=== PATIENT | female | born 1960 | race Caucasian/White ===

== ENCOUNTER → 2016-05-13 | Outpatient (CLI) | payer BC ==
[~2016-05-13] MED LIST: ASCA500 PO; CALC-478 PO; CHOL100010 PO; COEN75CA PO; LEVO112T4 PO; LORA10CA2 PO; LUTE15CA PO; LYSI500C4 PO; MOME50SP5; [UNRECOGNIZED DRUG - OTHER] PO
[2016-05-13 13:21] LABS: MEAN CELL VOLUME 89.8 fL (80-100); MEAN CORPUSCULAR HEMOGLOBIN 30.3 pg (25-34); MEAN CORPUSCULAR HGB CONC 33.8 g/dl (32-36); MEAN PLATELET VOLUME 10.3 fL (7.4-10.4); PLATELET COUNT 311 K/uL (130-400); RED BLOOD COUNT 4.12 M/uL (4.2-5.4); WHITE BLOOD COUNT 7.78 K/uL (4.8-10.8)
[2016-05-13 13:53] LABS: ALT/SGPT 45 U/L (12-78); BLOOD UREA NITROGEN 16 mg/dl (7-18); BUN/CREATININE RATIO 18.5 (10-20); CARBON DIOXIDE 26 mmol/L (21-32); CHLORIDE 100 mmol/L (98-107); CREATININE 0.84 mg/dl (0.60-1.20); GLUCOSE 81 mg/dl (70-99); POTASSIUM 3.7 mmol/L (3.5-5.1); SODIUM 134 mmol/L (136-145)
[2016-05-13 14:04] LABS: ALB/GLOB RATIO 1.2 (0.9-2); ALKALINE PHOSPHATASE 106 U/L (45-117); AST/SGOT 31 U/L (15-37); PHOSPHORUS 3.4 mg/dl (2.5-4.9)
[2016-05-18 01:33] LABS: ALBUMIN 4.4 G/DL (3.8-4.8); CREATININE UR 20 MG/DL (20-320); GAMMA GLOBULIN 0.9 G/DL (0.8-1.7); IONIZED CALCIUM** TC 19950E 5.01 MG/DL (4.8-5.6); TOTAL PROTEIN 7.1 G/DL (6.2-8.3)
== END | disposition home or self-care (01) ==
LOC: C.LAB1850 12:17
PROVIDERS: ATTEND Internal Medicine Endocrinology, Diabetes & Metabolism
DX: M81.0 Age-related osteoporosis without current pathological fracture (principal); E03.9 Hypothyroidism, unspecified; E06.3 Autoimmune thyroiditis

== ENCOUNTER 2021-01-19 05:08 | Observation (INO) ==
--- NOTE | 2021-01-08 08:41 | PAT Medication Instructions ---
Medication Instructions Date of Service January 08, 2021 Home Medications levothyroxine 100 mcg capsule 100 mcg PO QAM Medical Marijuana 1 dose PO HS PRN calcium carbonate-vitamin D3 600 mg calcium-200 unit capsule (Calcium 600 + D(3)) 1 cap PO BID clonazepam 0.5 mg tablet 0.5 mg PO UD conj estrogen-medroxyprogesterone 0.3 mg-1.5 mg tablet (Prempro) 1 tab PO HS escitalopram oxalate 20 mg tablet 20 mg PO QAM lysine 500 mg tablet 500 mg PO QAM magnesium citrate 100 mg capsule 100 mg PO 3XWK methylphenidate HCl 36 mg tablet,extended release 24 hr 36 mg PO QAM STOP taking 2 weeks before surgery (or as soon as possible if surgery is within 2 weeks) lysine 500 mg tablet 500 mg PO QAM DO NOT take the morning of surgery calcium carbonate-vitamin D3 600 mg calcium-200 unit capsule (Calcium 600 + D(3)) 1 cap PO BID magnesium citrate 100 mg capsule 100 mg PO 3XWK methylphenidate HCl 36 mg tablet,extended release 24 hr 36 mg PO QAM Take morning of surgery With a small sip of water, OTHERWISE NOTHING TO EAT OR DRINK AFTER MIDNIGHT: levothyroxine 100 mcg capsule 100 mcg PO QAM clonazepam 0.5 mg tablet 0.5 mg PO UD escitalopram oxalate 20 mg tablet 20 mg PO QAM Take evening before surgery Medical Marijuana 1 dose PO HS PRN (if needed) calcium carbonate-vitamin D3 600 mg calcium-200 unit capsule (Calcium 600 + D(3)) 1 cap PO BID clonazepam 0.5 mg tablet 0.5 mg PO UD conj estrogen-medroxyprogesterone 0.3 mg-1.5 mg tablet (Prempro) 1 tab PO HS (continue as normal unless told otherwise by surgeon) Other Notes If you have any questions please call us at [phone] or [phone] or [phone] or [phone]
--- NOTE | 2021-01-12 14:50 | Anesthesiology Consultation ---
Date of Service January 12, 2021 Assessment & Plan (1) Encounter for pre-operative examination: - COVID screening: Per assessment on 01/07: Travel screen negative, no known COVID-19 positive contacts or current COVID-19 related symptoms. Patient vacci nated. Surgeon arranging preop COVID testing (scheduled 01/15; [facility]). Awaiting results. - Outpatient (Same Day) Joint Pathway assessment: Patient is acceptable cand idate for outpatient joint pathway from anesthesia perspective pending perioperative course. Surgeon's office would be responsible to arrange post-op home management. Chart Review Chart Review: Acceptable Risk for Surgery (pending surgeon-ordered PCP preop evaluation) and Patient seen in Pre Admission Testing Teaching & Discussion Pre-Anesthesia Teaching/Discussion Notes: Instructed NPO after midnight before surgery,except medications with 15 cc of water. Medication instructions provided according to the PAT guidelines. History Surgery Operation Date: 01/19/21 10:15 Proposed Procedures p Left Total Knee Arthroplasty - Augustin Georgi Bowling MD Height/Weight Height: 5 ft 4 in Weight: 60.7 kg Allergies Allergy/AdvReac Type Severity Reaction Status Date / Time Sulfa (Sulfonamide Allergy Intermediate "Burn from Verified 01/08/21 12:39 Antibiotics) the inside out" adhesive Allergy Mild Skin Verified 01/08/21 12:39 irritation Medications Home Medications Medication Instructions Recorded Confirmed Last Taken levothyroxine 100 mcg capsule 100 mcg PO QAM 12/09/20 01/07/21 Unknown Medical Marijuana 1 dose PO HS PRN 01/07/21 01/07/21 Unknown calcium carbonate-vitamin D3 600 1 cap PO BID 01/07/21 01/07/21 Unknown mg calcium-200 unit capsule (Calcium 600 + D(3)) clonazepam 0.5 mg tablet 0.5 mg PO UD 01/07/21 01/07/21 Unknown conj estrogen-medroxyprogesterone 1 tab PO HS 01/07/21 01/07/21 Unknown 0.3 mg-1.5 mg tablet (Prempro) escitalopram oxalate 20 mg tablet 20 mg PO QAM 01/07/21 01/07/21 Unknown lysine 500 mg tablet 500 mg PO QAM 01/07/21 01/07/21 Unknown magnesium citrate 100 mg capsule 100 mg PO 3XWK 01/07/21 01/07/21 Unknown methylphenidate HCl 36 mg 36 mg PO QAM 01/07/21 01/07/21 Unknown tablet,extended release 24 hr Past Medical History Medical History ADD (attention deficit disorder) Anxiety and depression Arthritis Degenerative disc disease Cervical region Hypothyroidism Seasonal allergies Sensorineural hearing loss of both ears Temporomandibular joint disorder No locking Exercise / Class Metabolic Activity II 4-5 Yardwork/Stairs/Walk up hill Past Family History Family History Father Hearing loss Heart disease Hypertension Stroke Other Allergies No family history of adverse response to anesthesia No family history of bleeding disorder Denies family history of Cancer Asthma Past Surgical History Surgical History History of colonoscopy History of knee surgery Left knee x3 History of tooth extraction Past Anesthesia History No Hx of Anesthesia Complications and No Family Hx of Anesthesia Complications History of PONV No Hx of PONV and No Hx of Motion Sickness Social History Smoking Status: Current every day smoker tobacco type: cigarettes Smoking cigarettes per day: 10 cigs/day Do You Dip or Chew Tobacco: No Hx Alcohol Use: Yes alcohol intake frequency: holidays/special occasions only Hx Substance Use: Yes substance use type: marijuana (MEDICAL MARIJUANA) Review of Systems Patient denies chest pain, shortness of breath, dyspnea on exertion, fever, chills, cough, wheezing, palpitations. Physical Exam Vital Signs VITALS BP 105/64 P 58 TEMP 98.0 SP02 100%RA RESP 16 PHYSICAL Full cervical extension range of motion. Full TMJ range of motion. TMD 3.5 finger breaths Mallampati Score 3 Dentition: intact, + implants (molars) Lungs: clear throughout to auscultation Cardiac: regular rate and rhythm, no murmurs noted Spine: normal Carotid arteries: negative bruit Extremities: no edema Lab Results Anesthesia Preop Results Results Anesthesia Widget: WBC 6.55 K/uL (4.8-10.8) 01/12/21 Hgb 13.0 g/dL (12.0-16.0) 01/12/21 Hct 39.3 % (37-47) 01/12/21 Plt 287 K/uL (130-400) 01/12/21 Na 140 mmol/L (136-145) 01/12/21 K 4.4 mmol/L (3.5-5.1) 01/12/21 Cl 108 mmol/L (98-107) H 01/12/21 CO2 29 mmol/L (21-32) 01/12/21 BUN 14 mg/dl (7-18) 01/12/21 Creat 0.96 mg/dl (0.6-1.2) 01/12/21 Glucose Level 80 mg/dl (70-99) 01/12/21 PT 9.8 Seconds (9.0-12.0) 01/12/21 PTT 26.1 Seconds (21.0-31.0) 01/12/21 INR 1.0 (0.9-1.1) 01/12/21 Urine Color Yellow 01/12/21 Urine Appearance Clear (Clear) 01/12/21 Urine pH 5.5 (4.5-7.5) 01/12/21 Urine Specific [place] 1.019 (1.000-1.030) 01/12/21 Urine Protein Negative (Negative) 01/12/21 Urine Glucose (UA) Negative (Negative) 01/12/21 Urine Ketones Trace (Negative) H 01/12/21 Urine Blood Trace (Negative) H 01/12/21 Urine Nitrite Negative (Negative) 01/12/21 Urine Bilirubin Negative (Negative) 01/12/21 Urine Urobilinogen Negative (Negative) 01/12/21 Urine Leukocyte Esterase Negative (Negative) 01/12/21 Urine WBC (Auto) 1-5 /hpf (0-5) 01/12/21 Urine RBC (Auto) 0-4 /hpf (0-4) 01/12/21 Urine Hyaline Casts (Auto) 1-5 /lpf (0-5) 01/12/21 Urine Epithelial Cells (Auto) 5-10 /lpf (0-5) H 01/12/21 Urine Bacteria (Auto) Negative (Negative) 01/12/21 Blood Type B Positive 01/12/21 Antibody Screen NEGATIVE 01/12/21 Testing Electrocardiogram Date: 01/12/21 SB at 52bpm. No significant change compared to 09/30/15 per six color press operator review. Chest X-Ray Date: 01/12/21 Findings: + NAD
--- NOTE | 2021-01-15 08:20 | History & Physical Report ---
Date of Service January 15, 2021 Assessment & Plan (1) Osteoarthritis of left knee: Plan: PRE-OP Diagnosis: Left knee posttraumatic osteoarthritis Planned Procedure: Left total knee arthroplasty Plan: Patient is scheduled to undergo this procedure at [facility] as an outpatient via the outpatient joint pathway on January 19, [address] Bowling. Risks and complications of the procedure such as: Infection, bleeding, pain, scarring, nerve blood vessel damage, weakness, wound problems, stiffness, incomplete relief of symptoms, hardware failure, hardware loosening, wear, fracture, tendon or ligament injury, blood clots, embolism, heart attack, stroke and were explained to the patient at her visit on January [address] Bowling and informed consent from the procedure was obtained. Patient also understands risks of proceeding with surgical invention during the COVID-19 pandemic. Currently she is asymptomatic and understands that she will need to be tested prior to surgery. Patient is scheduled to meet with anesthesia later this afternoon and while there we will obtain a CBC with differential, complete metabolic panel, PT/INR, blood type and screen, urinalysis, urine culture and sensitivity, EKG, chest x-ray. She is also zurdo eduled to meet with her primary care provider Dr. Wall tomorrow for clearance. During today's visit we reviewed the total knee packet, discussed discharge planning. Advised the patient she will need to pass PT and OT before being discharged home after surgery. I did not send prescriptions to her pharmacy during today's visit including Celebrex, aspirin, Zofran and Senokot. I also checked the PDMP and saw no reason that would prevent us from prescribing oxycodone that was sent to her pharmacy for a total of 30 tablets. Patient will do in-home physical therapy for the first 2 weeks postoperatively. We are currently obtaining authorization for a home health service to do this in her hometown of [place]. Patient is scheduled for her 2-week postoperative follow-up with myself on February 03 at 8:30 AM. If she has questions or concerns that should arise prior to that follow-up or her surgery she will contact clinic. Patient does have a walker she will bring with her on the day o f the procedure. She also has a raised toilet seat in the shower chair that she will use at home following surgery. History of Present Illness Chief Complaint: Chief Complaint: Left knee pain Primary Care Provider: Marjorie Wall MD History of Present Illness (including history relevant to procedure): 60-year-old female presents the clinic today for preoperative history and physical. Patient has been followed for some time in our clinic regarding her left knee OA. She had undergone a left knee arthroscopy, with extensive debridement, chondroplasty, loose body removal, partial medial lateral meniscectomies October 05, 2015. Since that time she has been treated with physical therapy, cortisone and BENZ injections but is having persistent pain. She has failed all conservative measures and would like to proceed with total knee arthroplasty. Review Of Systems: A 12 point review of systems performed is unremarkable except for those things stated in the HPI and past medical history. Past Medical History: Problems: Pre-op exam Strain of muscle(s) and tendon(s) of peroneal muscle group at lower leg level, left leg, sequela OA (osteoarthritis) of knee Knee effusion OA (osteoarthritis) of knee Status post arthroscopic surgery of left knee Chondromalacia Torn meniscus Left leg pain Stress reaction of the foot Plantar fascial fibromatosis Foot pain, left Foot pain Knee pain Heel pain Diary Procedure History Procedure Procedure Date Comments Knee Oral Allergies and Sensitivities: Adhesive bandage(itchy) Pollen sulfADIAZINE social history: Patient states she was 1/2 pack/day smoker but quit 2 years ago. She denies tobacco or illicit drug use Family history: Noncontributory Current Home Meds: (Last Updated 01/12 14:35) alendronate (alendronate 70 mg oral tablet) 70 mg PO q7days alendronate (Fosamax) ascorbic acid (Vitamin C 250 mg oral tablet) 500 mg PO Daily clonazePAM (clonazePAM 0.5 mg oral tablet) 1/2 tab in the am and one in the night conjugated estrogens-medroxyPROGESTERone (Prempro) diclofenac (diclofenac sodium 75 mg oral delayed release tablet) 75 mg PO bid PRN: as needed for pain escitalopram (escitalopram 20 mg oral tablet) 20 mg PO Daily ferrous sulfate (ferrous sulfate 325 mg (65 mg elemental iron) oral delayed release tablet) 325 mg PO Daily may take with food to minimize abdominal discomfort levothyroxine (levothyroxine 100 mcg (0.1 mg) oral tablet) 100 mcg PO Daily methylphenidate (methylphenidate 36 mg/24 hr oral tablet, extended release) 36 mg PO qAM ondansetron (Zofran 4 mg oral tablet) 4 mg PO q8h oxyCODONE (oxyCODONE 5 mg oral tablet) 10 mg PO q4h post op pain control senna (Senokot 8.6 mg oral tablet) 8.6 mg PO qhs with plenty of water sodium hyaluronate (Euflexxa 10 mg/mL intra-articular solution) 20 mg intra- articular q7days 1 inj into B knees 1xwk for 3 wks, mail [facility] Dr wasserman [address] [address] [facility] [address] [place] [id number] Allergies Allergy/AdvReac Type Severity Reaction Status Date / Time Sulfa (Sulfonamide Allergy Intermediate "Burn from Verified 01/08/21 12:39 Antibiotics) the inside out" adhesive Allergy Mild Skin Verified 01/08/21 12:39 irritation Home Medications Medication Instructions Recorded Confirmed Type levothyroxine 100 mcg capsule 100 mcg PO QAM 12/09/20 01/07/21 History Medical Marijuana 1 dose PO HS PRN 01/07/21 01/07/21 History calcium carbonate-vitamin D3 600 1 cap PO BID 01/07/21 01/07/21 History mg calcium-200 unit capsule (Calcium 600 + D(3)) clonazepam 0.5 mg tablet 0.5 mg PO UD 01/07/21 01/07/21 History conj estrogen-medroxyprogesterone 1 tab PO HS 01/07/21 01/07/21 History 0.3 mg-1.5 mg tablet (Prempro) escitalopram oxalate 20 mg tablet 20 mg PO QAM 01/07/21 01/07/21 History lysine 500 mg tablet 500 mg PO QAM 01/07/21 01/07/21 History magnesium citrate 100 mg capsule 100 mg PO 3XWK 01/07/21 01/07/21 History methylphenidate HCl 36 mg 36 mg PO QAM 01/07/21 01/07/21 History tablet,extended release 24 hr Past Med/Surg History Medical History ADD (attention deficit disorder) Anxiety and depression Arthritis Degenerative disc disease Cervical region Hypothyroidism Seasonal allergies Sensorineural hearing loss of both ears Temporomandibular joint disorder No locking Surgical History History of colonoscopy History of knee surgery Left knee x3 History of tooth extraction Family History Father Hearing loss Heart disease Hypertension Stroke Other Allergies No family history of adverse response to anesthesia No family history of bleeding disorder Denies family history of Cancer Asthma Social History Smoking Status: Current every day smoker Age Started Using Tobacco: 20; packs per day: 0.5; Cigarettes Per Day: 10 cigs/day; Second Hand Exposure: No; Hx Alcohol Use: Yes Hx Substance Use: Yes Last Used Substance Other:: MEDICAL MARIJUANA Preferred Language: Pry[place]in[place] Communication Ability: Effective Feed Crusher Operator Required: No Beliefs That Will Affect Care: None marital status: Current Living Situation: Alone current occupational status: employed current occupation: Teacher How many Children do You have: 2 Feels Safe at Home: Yes Assistive Devices: Glasses Review of Systems All systems reviewed & are unremarkable except as noted in HPI & below Physical Exam Physical Exam: Physical Exam: (relevant to the procedure, including heart and lung evaluation) General: Alert and oriented x3 with proper grooming and hygiene Eyes: Pupils are equal and reactive to light with accommodation. Extract movements are intact Throat: Deferred due to COVID-19 precautions Cardiac: Regular rate and rhythm with no murmurs or gallops appreciated Lungs: Clear to auscultation throughout with no wheezing, rales or rhonchi Abdomen: Nonobese, nondistended, nontender with NABS Extremities: Left knee; 2+ DP pulse Sensation to light touch is intact Motor to the gastroc soleus, tibialis anterior, and EHL is 5/5. Able to perform straight leg raise. + Medial joint line tenderness. - Thiago's Ligamentous examination exhibits: Stable Toña 0 mm anterior translation and firm endpoint Posterior drawer stable Varus valgus stress at 0 and 30 stable Valgus stress at 0 and 30 stable - Effusion Range of motion 3110. + Tenderness to palpation medial patellar facet and distal IT band. Neuro: Cranial nerves II through XII are intact no motor or sensory deficit Skin: Normal appearance no open skin areas Results & Data ([facility]) Diagnostic Findings Studies (relevant to the procedure): x-rays which showed Moderate to severe degenerative changes left knee. Mild to moderate degenerative changes right knee. Mild varus alignment bilaterally. 3 degrees varus alignment on the left.
[~2021-01-19 05:08] MED LIST changes: -ASCA500 PO; -CALC-478 PO; -CHOL100010 PO; -COEN75CA PO; +GENERAL ORDER PROBLEM SCH; -LEVO112T4 PO; -LORA10CA2 PO; -LUTE15CA PO; -LYSI500C4 PO; -MOME50SP5; -[UNRECOGNIZED DRUG - OTHER] PO
[2021-01-19] MEDS ORDERED: ROPIVACAINE 0.5% HCL/PF 150 MG, BUPIVACAINE 0.75% MPF 20 ML, EPINEPHrine 30MG/30ML (OR ... INSTIL SCH ×2 (06:00)
[2021-01-19] MEDS ORDERED: FAMOTIDINE 20 MG TAB PO SCH (06:00)
[2021-01-19] MEDS ORDERED: LR 500ML BOLUS, THEN 15ML/HR IV SCH (06:00)
[2021-01-19] MEDS ORDERED: traMADol HCL 50 MG TABLET PO SCH (06:00)
[2021-01-19] MEDS ORDERED: dexAMETHasone 4 MG TAB PO SCH (06:00)
[2021-01-19] MEDS ORDERED: ceFAZolin 2000MG 2,000 MG/15 ML SYR IV SCH (06:00)
[2021-01-19] MEDS ORDERED: ACETAMINOPHEN 500 MG TAB PO SCH (06:00)
[2021-01-19] MEDS ORDERED: LR 60ML/HR IV SCH (06:00)
[2021-01-19] MEDS ORDERED: Scopolamine 1 MG TDSY TD SCH (06:00)
[2021-01-19] MEDS ORDERED: CeleBREX 200 MG CAP PO SCH (06:00)
[2021-01-19] MEDS ORDERED: TRANEXAMIC ACID 1,000 MG **IV Pre-op IV SCH (06:00)
[2021-01-19] MEDS ORDERED: TRANEXAMIC ACID 1,000 MG **IV Intra-op IV SCH (06:00)
[2021-01-19] MEDS ORDERED: LIDOCAINE 2% 2 ML VIAL/AMP(20MG/ML) INFIL ONE (06:32)
[2021-01-19] MEDS ORDERED: PROPOFOL IV EMULSION 10 MG/ML 20 ML VIAL IV ONE ×2 (06:32→09:18)
[2021-01-19] MEDS ORDERED: BUPIVACAINE 0.5 % 5 MG/1 ML PF 10ML VIAL ONE (06:32)
[2021-01-19] MEDS ORDERED: LIDOCAINE 2%/EPINEPHRINE 1:200,000 20 ML SDV ONE (06:32)
[2021-01-19] MEDS ORDERED: ONDANSETRON INJ 2 MG/ML 2 ML VIAL IV PRN ×3 (06:35→14:56)
[2021-01-19] MEDS ORDERED: ATROPINE SULFATE 0.1 MG/ML 10ML SYR IV PRN (06:35)
[2021-01-19] MEDS ORDERED: ePHEDrine sulfate 50 MG/ML AMP IV PRN (06:35)
[2021-01-19] MEDS ORDERED: ROPIVACAINE 0.5% 5 MG/ML 30 ML VIAL ONE (06:36)
[2021-01-19] MEDS ORDERED: MIDAZOLAM HCL 1 MG/ML 2ML VIAL ONE (06:36)
--- NOTE | 2021-01-19 06:44 | History & Physical Bridge Note ---
Date of Service January 19, 2021 History & Physical Bridge Note I have examined the patient, reviewed the History & Physical and in the interval since the performance of the History & Physical I have noted the following changes of clinical significance: no changes noted Patient is aware of the risks, is asymptomatic, and tested negative for COVID- 19.
[2021-01-19] MEDS ORDERED: KETAMINE 50 MG/5 ML SYRINGE ONE (07:17)
[2021-01-19] MEDS ORDERED: fentaNYL citrate 100 MCG/2 ML VIAL ONE (09:09)
--- NOTE | 2021-01-19 10:03 | Post Operative Brief Note ---
Immediate Post Op Note v1 Date of Surgery January 19, 2021 Pre & Post Diagnosis Operation Date: 01/19/21 07:00 Pre-Op Diagnosis: Left Knee Post Traumatic Osteoarthritis Post-Op Diagnosis: Left Knee Post Traumatic Osteoarthritis I identified the patient and participated in the time-out.: Yes Procedure Operation Date: 01/19/21 07:00 Actual Procedures p Left Total Knee Arthroplasty(Left) - Augustin Bowling MD Surgeon Augustin Bowling MD Gas Welding Equipment Mechanic ADDISON Fraire PA-C (No fellow avail) Estimated Blood Loss 75 Findings Consistent with Post-Op Diagnosis Fluids 1100 cc Specimens Left knee contents Anesthesia Type MAC Epidural Regional Complications none
--- NOTE | 2021-01-19 10:04 | Operative Report ---
Post Operative Report Pre & Post Diagnosis Operation Date: 01/19/21 07:00 Pre-Op Diagnosis: Left Knee Post Traumatic Osteoarthritis Post-Op Diagnosis: Left Knee Post Traumatic Osteoarthritis I identified the patient and participated in the time-out.: Yes Procedure Operation Date: 01/19/21 07:00 Actual Procedures p Left Total Knee Arthroplasty(Left) - Augustin Bowling MD Surgeon Augustin Bowling MD Help Desk Intern ADDISON Fraire PA-C (No fellow avail) Estimated Blood Loss 75 Findings See Below Examined Under Anesthesia: ROM -- There was 5 degrees to 130 degrees of flexion. Ligamentous examination -- revealed stable Toña, posterior drawer, varus and valgus stress at 0 and 30 degrees. Outerbridge Type IV changes of Patellofemoral compartment, medial compartment, Outerbridge grade II changes lateral compartment. There was Ethibond suture knot over bone bridge medial Tibia and single suture evident after Tibial cut along medial Tibial plateau. Fluids 1100 cc Specimens Left knee contents Anesthesia Type MAC Epidural Regional Complications none Indications This is a 60-year-old female who has clinical and radiographic findings consistent with post-traumatic osteoarthritis of the a left knee. I recommended that a left total knee replacement be performed. The patient understands the risks of surgery, which include but not limited to: bleeding, infection, re- operation, damage to nerves and arteries, continued knee pain, knee stiffness, DVT, and . The patient understands all of these instructions and explanations, all of his questions have been satisfactorily addressed and the patient has elected to proceed. Informed consent was signed. Description of Procedure IMPLANTS: 1. Femur: Triathlon #3 Left PS, with Posterior Stabilized pegs. 2. Tibia: Triathlon #4 [place] . 3. Insert: Triathlon #4 x 9 mm PS X3 poly. 4. Patella: Triathlon A35 x 10 mm X3 poly. 5. Simplex cement. ADDISON Fraire PA-C is assisting with positioning, retracting, and closure due to fellow not available. Procedure: The patient was taken to the Operating Room and placed in the supine position after epidural and adductor canal nerve block was administered. My initials and a multidisciplinary time-out were used to identify the left leg as the correct operative limb. A tourniquet was placed high in the thigh. Prior to the incision, 2 grams of intravenous Ancef were given. The left leg was then prepped and draped in a standard sterile fashion. An Esmarch was used to exsanguinate the leg and the tourniquet was inflated to 250 mmHg. The planned mid-line 20 cm incision was created exposing the extensor mechanism. The medial parapatellar arthrotomy was made and the patella was everted. The Ethibond suture over medial Tibia was sharply removed with scalpel and a rongeur. The patella was addressed first. It was prepared by reaming from 21 mm down to 10 mm. An A35 button was found to fit best. The peg holes were made in the standard fashion. The femur was addressed next and the guide chandra was placed intramedullary. The initial cutting block was placed with 5 degrees of valgus and removing 10 mm for the distal cut. The cut was made and the 4-in-1 cutting block for a size 3 femur was placed. These cuts and the cuts to place the box were made in the standard fashion. Our attention was then drawn to the tibia cut with the external cutting guide, taking 4 mm from the medial low side. There was sufficient extension and flexion gap to fit a 9 mm spacer. A #4 Tibial baseplate fit well. A trial with a 9 mm spacer showed excellent stability in both flexion and extension, with good ligament balance, and thumbs free patellar tracking. Range of motion of 0- 135 degrees. The posterior stabilizer pegs were prepped in the standard fashion. The Ethibond suture over medial Tibial plateau was removed with a hemostat. The tibial baseplate was prepped for the keel and stem. All components were removed. The tourniquet was deflated. Hemostasis was obtained. 90 ml of total knee cocktail were injected into the soft tissues and periosteum. A bone plug was placed in the femur and covered with bone wax. After a 10 minute break, the limb was exsanguinated again and the tourniquet was re-inflated. All surfaces were copiously irrigated prior to placement of the components. The femoral component followed by Tibial baseplate were cemented in place and the 9 mm X3 poly was placed in the standard fashion. Next, the patellar button was placed using the same Simplex cement. Again the range of motion and stability were unchanged. The extensor mechanism was closed with 1-0 and 0 Vicryl with the knee bent approximately 60 degrees in a standard fashion. The peritenon and deep fascia was closed with 2-0 Vicryl. The subcutaneous layer was closed with 3-0 Vicryl. The skin was closed with piedad. The limb was cleaned and dried. Xeroform, 4x4 dressing was placed over top followed by ABDs, sterile Webril, and a foot to thigh Ramirez bandage. The patient was then transferred to the Recovery Room in stable condition. The sponge and needle counts were correct. POST-OP INSTRUCTIONS: The patient will be WBAT. The patient will be discharged home later today. Home Health has been set-up already. DVT prophylaxis will included aspirin for 6 weeks, and TEDs for 3 weeks. I attest to the content of the Intraoperative Record and any orders documented therein. Any exceptions are noted below.
[2021-01-19] MEDS ORDERED: oxyCODONE/ACETAMINOPHEN 5mg/325mg TAB PO PRN (10:12)
--- NOTE | 2021-01-19 10:12 | Operative Report ---
Post Operative Report Pre & Post Diagnosis Operation Date: 01/19/21 07:00 Pre-Op Diagnosis: Left Knee Post Traumatic Osteoarthritis Post-Op Diagnosis: Left Knee Post Traumatic Osteoarthritis I identified the patient and participated in the time-out.: Yes Procedure Operation Date: 01/19/21 07:00 Actual Procedures p Left Total Knee Arthroplasty(Left) - Augustin Bowling MD Surgeon Augustin Bowling MD Flow Nurse ADDISON Fraire PA-C (No fellow avail) Estimated Blood Loss 75 Findings Consistent with Post-Op Diagnosis Specimens Left knee synovium Description of Procedure I was present during the entire case assisting with positioning, prepping, draping, wound retraction, wound closure and dressing application. No fellow present. Please see Dr. Bowling procedure note for specifics of the case. I attest to the content of the Intraoperative Record and any orders documented therein. Any exceptions are noted below.
[2021-01-19] MEDS ORDERED: NON-FORMULARY MEDICATION (Magnesium Citrate 100 mg Capsule) PO SCH (10:15)
[2021-01-19] MEDS: fentaNYL citrate 100 MCG/2 ML VIAL IV PRN ×4 (10:20→10:53)
--- NOTE | 2021-01-19 10:40 | XRay Report ---
XR knee LT 1 or 2V routine CLINICAL HISTORY: Surgical Post Op. Status post total knee replacement. COMPARISON STUDY: 01/05/2021 TECHNIQUE: 2 left knee views FINDINGS: The patient is status post total knee replacement. The prosthetic components are in anatomi c alignment with no acute abnormality seen. Air is present within the soft tissues from the procedure . Skin piedad are seen anteriorly. IMPRESSION: Status post total knee replacement. ACT 112: Negative or not required by law. Electronically signed by: Myron Bello M.D. 01/19/2021 10:39 AM
--- NOTE | 2021-01-19 11:02 | Anesthesiology Progress Note ---
Date of Service January 19, 2021 Anesthesia Post Procedure Vital Signs Vital Signs: Temp Pulse Resp BP Pulse Ox 01/19/21 10:55 79 15 127/57 L 93 01/19/21 10:45 82 19 109/62 93 01/19/21 10:35 71 17 128/63 98 01/19/21 10:25 84 18 93/77 L 98 01/19/21 10:15 84 21 118/75 97 01/19/21 10:09 97.9 F 86 16 112/88 96 01/19/21 05:53 98.4 F 64 20 103/67 97 Pain Intensity Left Knee: Pain Intensity: 5 Transfer of Care Handoff Completed per policy Notes Mental Status: alert / awake / arousable and participated in evaluation Patient Amnestic to Procedure: Yes Nausea / Vomiting: adequately controlled Pain: adequately controlled Airway Patency, RR, SpO2: stable & adequate BP & HR: stable & adequate Hydration State: stable & adequate Neuraxial Anesthesia: was administered and sensory block is resolving Anesthetic Complications: no major complications apparent and Pt Satisfied with anesthetic care
--- NOTE | 2021-01-19 11:03 | Anesthesia Procedure Note ---
Date of Service January 19, 2021 Anesthesia Post Epidural Note Vital Signs Vital Signs: Temp Pulse Resp BP Pulse Ox 97.9 F 79 15 127/57 L 93 01/19/21 10:09 01/19/21 10:55 01/19/21 10:55 01/19/21 10:55 01/19/21 10:55 Pain Intensity Left Knee: Pain Intensity: 5 Notes Mental Status: alert / awake / arousable and participated in evaluation Patient Amnestic to Procedure: Yes Nausea / Vomiting: adequately controlled Pain: adequately controlled Airway Patency, RR, SpO2: stable & adequate BP & HR: stable & adequate Hydration State: stable & adequate Neuraxial Anesthesia: was administered and sensory block is resolving Anesthetic Complications: no major complications apparent and Pt Satisfied with anesthetic care Epidural: Removed without complications and With tip intact
[2021-01-19] MEDS ORDERED: diphenhydrAMINE 50 MG/ML VIAL IV PRN (14:56)
[2021-01-19] MEDS ORDERED: NALOXONE HCL 0.4 MG/1 ML VIAL/CARP IV PRN (14:56)
[2021-01-19] MEDS ORDERED: METOCLOPRAMIDE HCL INJ 5 MG/ML 2 ML VIAL IV PRN (14:56)
[2021-01-19] MEDS ORDERED: bisacodyL 10 MG SUPP PR PRN (14:56)
[2021-01-19] MEDS ORDERED: ALUMINUM/MAGNESIUM SUSP 30 ML UDC PO PRN (14:56)
[2021-01-19] MEDS ORDERED: MAGNESIUM HYDROXIDE SUSP 30 ML UDC PO PRN (14:56)
[2021-01-19] MEDS ORDERED: oxyCODONE HCL IR 5 MG TAB (IMMEDIATE RELEASE) PO PRN (14:56)
[2021-01-19] MEDS ORDERED: ceFAZolin 1000MG 1,000 MG/7.5 ML SYR IV ONE (15:00)
--- NOTE | 2021-01-19 15:33 | Orthopedic Progress Note ---
Date of Service January 19, 2021 Assessment & Plan (1) Osteoarthritis of left knee: Plan: POD #0 s/p Left TKA, with left foot drop in recovery. Will admit overnight and re-assess tomorrow. Dressing loosened including cast padding, loosely re-applied the RAMIREZ. Small bump placed under knee. Will re-evaluate foot drop in am. Possible etiology of incomplete common peroneal nerve palsy due to epidural vs stretch. If still present tomorrow will obtain an AFO. Continue with small bump under knee. Resume diet. WBAT with walker and assistance. OOB to chair. Continue pain control. Check labs tomorrow. DVT prophylaxis: TEDs 3 weeks, foot pumps while in hospital, ASA 81 mg BID for 6 weeks. PT/OT. D/C planning. Present on Admission?: Yes (2) Foot drop, left: Plan: See above Present on Admission?: No Subjective Unable to raise my foot. Review of Systems Review of Systems: All systems reviewed & are unremarkable except as noted in HPI & below Physical Exam Physical Exam: LLE: Dressing clean, dry , intact. Ramirez bandage not to tight, removed and lightly re-applied. Calf soft and non-tender. Sensation to light touch about the foot intact, slightly diminished lateral calf. Able to preform straight leg raise. Actively flex knee to 45 degrees and plantar flex the toes and foot. Results & Data ([facility]) Vital Signs (Past 12 Hours) Vital Signs Temp Pulse Resp BP Pulse Ox 01/19/21 14:54 81 20 99/63 L 97 01/19/21 14:12 36.6 C 74 20 98/63 L 95 01/19/21 13:05 36.4 C L 75 20 104/66 95 01/19/21 12:20 36.5 C 77 18 102/66 95 01/19/21 11:50 36.5 C 74 18 117/71 94 01/19/21 11:20 36.4 C L 85 18 123/69 94 01/19/21 11:05 36.4 C L 775 H 17 126/76 93 01/19/21 10:55 79 15 127/57 L 93 01/19/21 10:45 82 19 109/62 93 01/19/21 10:35 71 17 128/63 98 01/19/21 10:25 84 18 93/77 L 98 01/19/21 10:15 84 21 118/75 97 01/19/21 10:09 36.6 C 86 16 112/88 96 01/19/21 05:53 36.9 C 64 20 103/67 97 Diagnostic Findings XR knee LT 1 or 2V routine CLINICAL HISTORY: Surgical Post Op. Status post total knee replacement. COMPARISON STUDY: 01/05/2021 TECHNIQUE: 2 left knee views FINDINGS: The patient is status post total knee replacement. The prosthetic components are in anatomic alignment with no acute abnormality seen. Air is present within the soft tissues from the procedure. Skin piedad are seen anteriorly. IMPRESSION: Status post total knee replacement.
[2021-01-19] MEDS: Scopolamine CHECK PATCH PLACEMENT SCH (16:16)
[2021-01-19] MEDS ORDERED: FLUARIX QUADRIVALENT 0.5 ML SYR IM ONE (16:44)
[2021-01-19] MEDS ORDERED: MEDICAL MARIJUANA INH PRN (16:46)
[2021-01-19] MEDS: ceFAZolin 1000MG 1,000 MG/7.5 ML SYR IV SCH (16:50)
[2021-01-19] MEDS: KETOROLAC TROMETHAMINE 15 MG/ML VIAL IV SCH ×2 (16:51→21:29)
[2021-01-19] MEDS: SODIUM CHLORIDE 0.9% 1000ML 1,000 ML IV SCH (16:51)
[2021-01-19] MEDS: ASCORBIC ACID 500 MG TAB PO SCH (16:53)
[2021-01-19] MEDS: FERROUS GLUCONATE 324 MG TAB PO SCH (16:54)
[2021-01-19] MEDS ORDERED: clonazePAM 0.5 MG TAB PO SCH (21:00)
[2021-01-19] MEDS ORDERED: SENNA 8.6 MG TAB PO SCH (21:00)
[2021-01-19] MEDS: CALCIUM 600MG + VIT D 400 IU TAB PO SCH (21:22)
[2021-01-19] MEDS: ASPIRIN 81 MG ECTAB PO SCH (21:22)
[2021-01-19] MEDS: DOCUSATE SODIUM 100 MG CAP PO SCH (21:23)
[2021-01-19] MEDS: ACETAMINOPHEN 500 MG TAB PO SCH (21:24)
[2021-01-20] MEDS: Scopolamine CHECK PATCH PLACEMENT SCH ×2 (00:33→07:48)
[2021-01-20] MEDS: SODIUM CHLORIDE 0.9% 1000ML 1,000 ML IV SCH (02:10)
[2021-01-20] MEDS: KETOROLAC TROMETHAMINE 15 MG/ML VIAL IV SCH ×2 (02:10→07:52)
[2021-01-20] MEDS: ACETAMINOPHEN 500 MG TAB PO SCH ×2 (05:42→13:23)
[2021-01-20] MEDS: ceFAZolin 1000MG 1,000 MG/7.5 ML SYR IV SCH (05:42)
[2021-01-20] MEDS ORDERED: LEVOTHYROXINE SODIUM 100 MCG TABLET PO SCH (06:30)
[2021-01-20] MEDS: DOCUSATE SODIUM 100 MG CAP PO SCH (07:47)
[2021-01-20] MEDS: CALCIUM 600MG + VIT D 400 IU TAB PO SCH (07:47)
[2021-01-20] MEDS: FERROUS GLUCONATE 324 MG TAB PO SCH (07:48)
[2021-01-20] MEDS: ASCORBIC ACID 500 MG TAB PO SCH (07:48)
[2021-01-20] MEDS: ASPIRIN 81 MG ECTAB PO SCH (07:49)
[2021-01-20] MEDS ORDERED: dexAMETHasone 4 MG TAB PO SCH (08:00)
[2021-01-20 09:00] LABS: Hematocrit (blood only) 33.5 % (37-47); Mean Corpuscular Hemoglobin 29.9 pg (25-34); Mean Corpuscular Hgb Conc 32.8 g/dL (32-36); Mean Platelet Volume 9.9 fL (7.4-10.4); Platelet Count 222 K/uL (130-400); RDW Coefficient of Variation 12.9 % (11.5-14.5); RDW Standard Deviation 42.9 fL (36.4-46.3); Red Blood Count 3.68 M/uL (4.2-5.4); White Blood Count 13.88 K/uL (4.8-10.8)
[2021-01-20] MEDS ORDERED: ESCITALOPRAM OXALATE 20 MG TAB PO SCH (09:00)
[2021-01-20] MEDS ORDERED: MULTIVITAMIN TAB PO SCH (09:00)
[2021-01-20] MEDS ORDERED: NON-FORMULARY MEDICATION (Lysine 500 mg Tablet) PO SCH (09:00)
[2021-01-20] MEDS ORDERED: clonazePAM 0.5 MG TAB PO SCH (09:00)
[2021-01-20 09:30] LABS: BUN Creatinine Ratio 17.2 (10-20); Calcium 9.5 mg/dl (8.5-10.1); Creatinine Clr Calc Pharmacy 59.5 ml/min; Est GFR (African American) 82.8 ml/min; Est GFR (Non-African American) 71.4 ml/min; Potassium 4.3 mmol/L (3.5-5.1)
--- NOTE | 2021-01-20 11:09 | Orthopedic Progress Note ---
Date of Service January 20, 2021 Assessment & Plan (1) Osteoarthritis of left knee: Plan: POD #1 s/p Left TKA, with left foot. Dressing replaced. Small bump may be placed under knee. Possible etiology of incomplete Peroneal nerve palsy due to epidural vs stretch. Will obtain an AFO. Continue diet. WBAT with walker and assistance. OOB to chair. Continue pain control. Patient wishes to be d/c home. Will co-ordinate obtaining AFO. DVT prophylaxis: TEDs 3 weeks, foot pumps while in hospital, ASA 81 mg BID for 6 weeks. PT/OT. D/C planning. (2) Foot drop, left: Plan: See above Admission and Anticipated Discharge Date Admission Date: January 19, 2021 Subjective Still unable to raise my foot. Review of Systems Review of Systems: All systems reviewed & are unremarkable except as noted in HPI & below Physical Exam Physical Exam: LLE: Dressing clean and intact, min bloody ooze centrally. Removed dressing and replaced. Applied TOMMY over dressing. Calf soft and non-tender. Sensation to light touch about the Superficial Peroneal Nerve distribution intact, The Deep Peroneal Nerve distribution is 70% at the first web space, along anterior hollis and lateral calf ~40%. Able to preform straight leg raise. Actively plantar flex the toes and foot. Foot resting in plantar flexed position. Results & Data ([facility]) Vital Signs (Past 12 Hours) Vital Signs Temp Pulse Resp BP Pulse Ox 01/20/21 07:13 37.1 C 59 L 16 104/69 99 01/20/21 04:04 37.1 C 80 16 108/62 98 01/19/21 23:05 37.1 C 66 16 98/62 L 98 Laboratory Results 01/20/21 01/20/21 01/20/21 Range/Units 08:41 08:41 08:41 WBC 13.88 H (4.8-10.8) K/uL RBC 3.68 L (4.2-5.4) M/uL Hgb 11.0 L (12.0-16.0) g/dL Hct 33.5 L (37-47) % MCV 91.0 (80-100) fL MCH 29.9 (25-34) pg MCHC 32.8 (32-36) g/dL RDW Std Deviation 42.9 (36.4-46.3) fL RDW Coeff of Shelley 12.9 (11.5-14.5) % Plt Count 222 (130-400) K/uL MPV 9.9 (7.4-10.4) fL Sodium 140 (136-145) mmol/L Potassium 4.3 (3.5-5.1) mmol/L Chloride 110 H (98-107) mmol/L Carbon Dioxide 25 (21-32) mmol/L Anion Gap 6.0 (3-11) BUN 15 (7-18) mg/dl Creatinine 0.89 (0.6-1.2) mg/dl Est Cr Clr Drug Dosing 59.5 ml/min Est GFR ( Amer) 82.8 ml/min Est GFR (Non-Af Amer) 71.4 ml/min BUN/Creatinine Ratio 17.2 (10-20) Glucose 105 H (70-99) mg/dl Calcium 9.5 (8.5-10.1) mg/dl Hepatitis C Ab Screen Neg (Neg)
[2021-01-20] MEDS ORDERED: CeleBREX 200 MG CAP PO SCH (21:00)
--- NOTE | 2021-01-21 08:38 | Discharge Summary ---
Date of Service January 21, 2021 Admission HPI Per Admitting Provider History of Present Illness (including history relevant to procedure): 60-year-old female presents the clinic today for preoperative history and physical. Patient has been followed for some time in our clinic regarding her left knee OA. She had undergone a left knee arthroscopy, with extensive debridement, chondroplasty, loose body removal, partial medial lateral meniscectomies October 05, 2015. Since that time she has been treated with physical therapy, cortisone and BENZ injections but is having persistent pain. She has failed all conservative measures and would like to proceed with total knee arthroplasty. Review Of Systems: A 12 point review of systems performed is unremarkable except for those things stated in the HPI and past medical history. Past Medical History: Problems: Pre-op exam Strain of muscle(s) and tendon(s) of peroneal muscle group at lower leg level, left leg, sequela OA (osteoarthritis) of knee Knee effusion OA (osteoarthritis) of knee Status post arthroscopic surgery of left knee Chondromalacia Torn meniscus Left leg pain Stress reaction of the foot Plantar fascial fibromatosis Foot pain, left Foot pain Knee pain Heel pain Diary Procedure History Procedure Procedure Date Comments Knee Oral Allergies and Sensitivities: Adhesive bandage(itchy) Pollen sulfADIAZINE social history: Patient states she was 1/2 pack/day smoker but quit 2 years ago. She denies tobacco or illicit drug use Family history: Noncontributory Current Home Meds: (Last Updated 01/12 14:35) alendronate (alendronate 70 mg oral tablet) 70 mg PO q7days alendronate (Fosamax) ascorbic acid (Vitamin C 250 mg oral tablet) 500 mg PO Daily clonazePAM (clonazePAM 0.5 mg oral tablet) 1/2 tab in the am and one in the night conjugated estrogens-medroxyPROGESTERone (Prempro) diclofenac (diclofenac sodium 75 mg oral delayed release tablet) 75 mg PO bid PRN: as needed for pain escitalopram (escitalopram 20 mg oral tablet) 20 mg PO Daily ferrous sulfate (ferrous sulfate 325 mg (65 mg elemental iron) oral delayed release tablet) 325 mg PO Daily may take with food to minimize abdominal discomfort levothyroxine (levothyroxine 100 mcg (0.1 mg) oral tablet) 100 mcg PO Daily methylphenidate (methylphenidate 36 mg/24 hr oral tablet, extended release) 36 mg PO qAM ondansetron (Zofran 4 mg oral tablet) 4 mg PO q8h oxyCODONE (oxyCODONE 5 mg oral tablet) 10 mg PO q4h post op pain control senna (Senokot 8.6 mg oral tablet) 8.6 mg PO qhs with plenty of water sodium hyaluronate (Euflexxa 10 mg/mL intra-articular solution) 20 mg intra- articular q7days 1 inj into B knees 1xwk for 3 wks, mail to Dr office [id number] [facility] [address] [facility] [id number] Discharge Data Procedures Performed Operation Date: 01/19/21 07:00 Actual Procedures p Left Total Knee Arthroplasty(Left) - Augustin Bowling MD Hospital Course (1) Osteoarthritis of left knee: Patient was admitted to [facility] after undergoing an elective left total knee arthroplasty by Dr. Bowling on January 19, 2021. Surgery was initially scheduled for an outpatient joint but postoperatively she failed physical therapy due to her left foot drop that occurred after surgery. She tolerated the surgery well without any intraoperative complications. She was given IV Ancef for surgical prophylaxis which was continued for 24 hours after her procedure. Due to the foot drop and inability to ambulate she was a admitted in observation at [facility]. She was given oxycodone, oral Tylenol, IV Dilaudid, and Toradol for pain. Her pain was well controlled with oral medications. She tolerated regular diet after surgery. She did not did not develop any postoperative nausea or vomiting. Vital signs remained stable during her inpatient stay. Her regular home medications were continued. She was allowed out of bed, weight-bear as tolerated left lower extremity. She used a walker to assist with ambulation. She was seen on postoperative day 1 with physical therapy and Occupational Therapy and did well even with the foot drop. Foot drop did not significantly change overnight, it seemed incomplete nerve palsy. Postoperative day 1 her dressings were changed with Dr. Bowling at bedside. It was determined that she would need a custom AFO brace for the left foot due to the foot drop. She was in agreement with this. An orthotics consult was placed and the AFO was applied. Regular home medications were continued. Her postoperative pain medication, vitamin C, iron, Colace, Tylenol oral prescribed preoperatively prior to her surgery. All questions were answered. Discharge instructions were provided. She was discharged to her home in stable condition on January 20, 2021. (2) Foot drop, left: Please see above. Postoperative complication. AFO ordered and applied.
== END 2021-01-20 15:27 | disposition home health service (06) ==
LOC: 3E 05:08 → ASU 05:08